=== PATIENT | female | born 1995 | race Asian ===

== ENCOUNTER 2019-10-04 18:13 | Emergency (ER) | payer OTHER ==
--- OUTSIDE RECORDS SUMMARY | 2019-10-04 18:29 | XMS REPORT | Continuity of Care Document ---
:1995 External Reference #:[id number] Demographics Home Phone [phone] Preferred Language Unknown Marital Status Unknown Restoration Affiliation Unknown Race Unknown Ethnic Group Unknown Author Name [facility] (transmitted by agent of provider Arnoldo Augustine) Address [address] [place] [id number] Problems Description No Information Available Social History Type Date Description Comments Sex Unknown Allergies, Adverse Reactions, Alerts Description No Information Available Medications Description No Information Available Immunizations Description No Information Available Vital Signs Description No Information Available Results Description No Information Available Procedures Description No Information Available Medical Devices Description No Information Available Encounters Description No Information Available Assessments Description No Information Available Plan of Treatment No Information Available Functional Status Description No Information Available Mental Status Description No Information Available Referrals Description No Information Available
--- NOTE | 2019-10-04 18:36 | ED ---
Throat Pain/Nasal Congestion - HPI Summary HPI Summary: 24 y/o F [place] [facility] [place]/o worsening right eye pain and irritation starting 4 days ago. Patient visited [place] 2 weeks ago. She developed flu- like symptoms and was tested for COVID19 which came back negative. She recently did some hiking in [place]. She noticed swollen lymph node behind her right ear several days ago. She reports right eye pain and irritation for which she has been using eye drops. She also noticed rash on her right forehead, near her right eyebrow, and on right scalp for which she has been using OTC cortisone. She states the rash looked like a mosquito bite. She reports intermittent headaches for which she has been taking Tylenol. She has been going to her primary care provider. Her PCP prescribed amoxicillin 3 days ago. Patient has been taking it with improvement in swelling. Her PCP called her today and reported that she thinks patient has shingles. Hx chicken pox. Her PCP prescribed her an antiviral today which she hasn't started taking yet. Her PCP referred her to boiler fireman but patient wasn't able to see one so she came to the ED. Patient denies fever, chills, visual changes, nausea/vomiting/ diarrhea. The patient rates the pain 4/10 in severity. Symptoms aggravated by nothing. Symptoms alleviated by amoxicillin, OTC cortisone, Tylenol, eye drops. Medications reviewed. Allergies noted. - History of Current Complaint Chief Complaint: EDRashSkinAbscess Time Seen by Provider: 10/04/19 18:23 Hx Obtained From: Patient Onset/Duration: Lasting Days - 4, Still Present Severity: Mild - Allergies/Home Medications Allergies/Adverse Reactions: Allergies Allergy/AdvReac Type Severity Reaction Status Date / Time shellfish derived Allergy GI Upset Verified 10/04/19 18:21 currants Allergy Hives Uncoded 10/04/19 18:21 PMH/Surg Hx/FS Hx/Imm Hx Endocrine/Hematology History: Denies: Hx Diabetes Cardiovascular History: Denies: Hx Hypertension GI History: Reports: Hx Irritable Bowel - Surgical History Surgical History: Yes Surgery Procedure, Year, and Place: T&A. ACL repair Infectious Disease History: No Infectious Disease History: Denies: Traveled Outside the [place] in Last 30 Days - Family History Known Family History: Positive: Other - cancer - Social History Alcohol Use: Daily Substance Use Type: Reports: None Hx Tobacco Use: No Smoking Status (MU): Never Smoked Tobacco Review of Systems Negative: Fever, Chills Eyes: Negative - visual changes Positive: Other - right eye pain and irritation Positive: Other - swollen lymph node behind right ear Negative: Vomiting, Diarrhea, Nausea Positive: Other - rash on her right forehead, near her right eyebrow, and on right scalp Positive: Headache All Other Systems Reviewed And Are Negative: Yes Physical Exam - Summary Physical Exam Summary: Constitutional: Well-developed, Well-nourished, Alert. (-) Distressed Skin: Warm, Dry; There is a small herpetic rash over the right forehead. A fainter, similar rash in region of right eyebrow as well as right scalp. No rash immediately adjacent to the right eye or involving the right eyelid. HENT: Normocephalic; Atraumatic Eyes: Conjunctiva normal; no dendritic pattern noted on slit lamp exam Neck: Musculoskeletal ROM normal neck. (-) JVD, (-) Stridor, (-) Tracheal deviation Cardio: Rhythm regular, rate normal, Heart sounds normal; Intact distal pulses; The pedal pulses are 2+ and symmetric. Radial pulses are 2+ and symmetric. (-) Murmur Pulmonary/Chest wall: Effort normal. (-) Respiratory distress, (-) Wheezes, (-) Rales Abd: Soft, (-) tenderness, (-) Distension, (-) Guarding, (-) Rebound Musculoskeletal: (-) Edema Lymph: (-) Cervical adenopathy Neuro: Alert, Oriented x3 Psych: Mood and affect Normal Triage Information Reviewed: Yes Vital Signs On Initial Exam: Initial Vitals Temp Pulse Resp BP Pulse Ox 98.7 F 74 16 133/92 100 10/04/19 18:15 10/04/19 18:15 10/04/19 18:15 10/04/19 18:15 10/04/19 18:15 Vital Signs Reviewed: Yes Procedures - Sedation Patient Received Moderate/Deep Sedation with Procedure: No Diagnostics - Vital Signs Vital Signs Temp Pulse Resp BP Pulse Ox 10/04/19 18:15 98.7 F 74 16 133/92 100 - Laboratory Lab Statement: Any lab studies that have been ordered have been reviewed, and results considered in the medical decision making process. EENT Course/Dx - Course Course Of Treatment: 24 y/o F c/o worsening swollen lymph node behind her right ear, right eye pain and irritation, rash on her right forehead, near her right eyebrow, and on right scalp, and intermittent headaches x4 days. Patient has been taking Tylenol, rx amoxicillin, and using OTC cortisone and eye drops with some improvement in symptoms. Her primary care provider prescribed an antiviral today which patient has not yet taken and referred patient to the ED. Upon physical exam, there is a small herpetic rash over the right forehead. A fainter , similar rash in region of right eyebrow as well as right scalp. No rash immediately adjacent to the right eye or involving the right eyelid. no dendritic pattern noted on slit lamp exam. Spoke with Dr. King who states he is willing to see patient tomorrow in the office. She should expect a phone call by 9 am tomorrow to schedule an appointment. Patient will be d/c and referred to ophthalmology for f/u. She was instructed to return to the ER for new or worsening sx. She is agreeable to this plan. - Diagnoses Provider Diagnoses: Herpes zoster - Provider Notifications Discussed Care Of Patient With: Arnoldo King - Will see patient in the office tomorrow Time Discussed With Above Provider: 19:33 Discharge ED - Sign-Out/Discharge Documenting (check all that apply): Patient Departure - Discharge Plan Condition: Stable Disposition: HOME Patient Education Materials: Shingles (ED) Referrals: Arnoldo King MD [Medical Doctor] - 10/05/19 Additional Instructions: Dr. King's office will call you tomorrow before 9 am to schedule an appointment. If they do not, then you can call them for an appointment. Return to the Emergency Department for new or worsening symptoms. - Billing Disposition and Condition Condition: STABLE Disposition: Home - Attestation Statements Document Initiated by Shiela: Yes Documenting Scribe: Maria Luisa Ellington Provider For Whom Shiela is Documenting (Include Credential): Patel Arvizu DO Scribe Attestation: Maria Luisa Napoles scribed for Patel Arvizu DO on 10/04/19 at 1951. Scribe Documentation Reviewed: Yes Provider Attestation: The documentation as recorded by the Maria Luisa anne accurately reflects the service I personally performed and the decisions made by me, Patel Arvizu, DO Status of Scribe Document: Viewed
[2019-10-04] MEDS ORDERED: Fluorescein Sodium TOPICAL* 1 MG TEST STRIP OPHTHALMIC ONE (18:51)
[2019-10-04] MEDS ORDERED: Tetracaine 0.5% OPTH.SOL 4 ML* 1 DROP BTL RIGHT EYE ONE (18:52)
[2019-10-04 19:51] VITALS: BP 116/77
== END 2019-10-04 19:49 | disposition home or self-care (01) ==
LOC: ED 18:13
DX: B02.9 Zoster without complications (principal); R51 Headache
CPT/HCPCS: 99282; A9270-GY